=== PATIENT | male | born 1975 | race Caucasian/White ===

== ENCOUNTER 2017-09-30 02:11 | Emergency (ER) | payer BC, OTHER ==
[2017-09-30] MEDS ORDERED: Orphenadrine 100 MG Tab.ER PO STA (03:01)
[2017-09-30] MEDS ORDERED: Acetaminophen/HYDROcodone 325-5 MG Tab PO ONE (03:01)
--- NOTE | 2017-09-30 03:10 | EDM.PDOC ---
ED HPI GENERAL MEDICAL PROBLEM - General Chief Complaint: Back Pain or Injury Stated Complaint: BACK PAIN Time Seen by Provider: 09/30/17 02:30 Source of Information: Reports: Patient, Family (), RN Notes Reviewed History Limitations: Reports: No Limitations - History of Present Illness INITIAL COMMENTS - FREE TEXT/NARRATIVE: The patient states that he lifted a heavy box around 10:00 yesterday morning, 09/29/2017, while at home. When he did so, he felt a tug in his lower back, so he stopped lifting the box, but very soon afterwards the tightness in his lower back significantly increased, so that within a few minutes, he was unable to flex at the hips. He is most comfortable if he lies on his back with his knees bent upwards, and sometimes if he rolls his entire body to the left or right, as a unit. He states that the pain is felt in his lower back and upper buttocks, and does not radiate down either lower extremity, except occasionally, if he moves wrong, where he may have pain radiating down the back of both thighs as far as his knees. The patient states that if he tries to flex, the pain may be so severe that he might fall to the floor, but he does not have lower extremity weakness, per se. No bowel or bladder incontinence. He states that he has had prior low back pain, but not as severe. No prior medical evaluation of his lower back. The patient states that he has been taking ibuprofen for his discomfort. The patient does not have a PCP. 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 Lower Back Pain Score (Numeric/FACES): 8 - Related Data Allergies Allergy/AdvReac Type Severity Reaction Status Date / Time No Known Allergies Allergy Verified 09/30/17 02:22 Home Meds: Home Meds Hydrocodone/Acetaminophen [[place] 5-325 Tablet] 1 - 2 tab PO Q6H PRN #14 tablet 09/30/17 [Rx] Orphenadrine [Norflex] 1 tab PO Q12H #20 tab.er 09/30/17 [Rx] Past Medical History - Past Surgical History HEENT Surgical History: Reports: Oral Surgery (Pool teeth extraction) Social & Family History - Family History Family Medical History: Noncontributory - Tobacco Use Smoking Status *Q: Never Smoker - Caffeine Use Caffeine Use: Reports: Soda - Alcohol Use Alcohol Use History: No - Recreational Drug Use Recreational Drug Use: No - Living Situation & Occupation Living situation: Reports: , with Spouse, with Family (3 kids) Occupation: Employed (Construction) ED ROS GENERAL - Review of Systems Review Of Systems: See Below Constitutional: Reports: No Symptoms HEENT: Reports: No Symptoms Respiratory: Reports: No Symptoms Cardiovascular: Reports: No Symptoms Endocrine: Reports: No Symptoms GI/Abdominal: Reports: No Symptoms : Reports: No Symptoms Musculoskeletal: Reports: No Symptoms Skin: Reports: No Symptoms Neurological: Reports: No Symptoms Psychiatric: Reports: No Symptoms Hematologic/Lymphatic: Reports: No Symptoms Immunologic: Reports: No Symptoms ED EXAM,LOWER BACK PAIN/INJURY - Physical Exam Exam: See Below Exam Limited By: No Limitations General Appearance: Alert, WD/WN, Moderate Distress (When asked to flex and twist, etc.) Back Exam: Normal Inspection, Decreased Range of Motion, Other (The patient is unable to flex or extend the spine due to pain. He is not able to tilt the spine to the right, however, is able to tilt to the left to approximately 30. He is able to twist the spine to the left approximate 5, to the right approximate 30. Unilateral knee bend on the left is quite limited due to pain, but essentially normal on the right. Straight leg raise induces low back pain without radiculopathy at approximate 45 bilaterally. Symptoms are not worsened with forced dorsiflexion of either foot.). No: Muscle Spasm, Paraspinal Tenderness, Vertebral Tenderness Course - Vital Signs Last Recorded V/S: Last Vital Signs Temp 36.4 C 09/30/17 02:18 Pulse 70 09/30/17 02:18 Resp 18 09/30/17 02:18 BP 118/71 09/30/17 02:18 Pulse Ox 100 09/30/17 02:18 - Orders/Labs/Meds Orders: Active Orders 24 hr Category Date Time Status Acetaminophen/HYDROcodone [[place] 325-5 MG] Med 09/30/17 03:01 Once 2 tab PO ONETIME ONE Orphenadrine [Norflex] Med 09/30/17 03:01 Stat 100 mg PO ONETIME STA - Re-Assessments/Exams Free Text/Narrative Re-Assessment/Exam: 09/30/17 03:02 As the various physical examination maneuvers induced only low back pain without radiculopathy, I suspect that he is suffering from acute muscle spasm, not a herniated disc. I have started the patient on both Norflex and [place], and will prescribe the same. I am recommending that he begin swimming later today, and I will refer him to Dr. Tobias, should his symptoms not improve. Departure - Departure Time of Disposition: 03:03 Disposition: Home, Self-Care 01 Condition: Fair Clinical Impression: Low back strain - Discharge Information Prescriptions: Hydrocodone/Acetaminophen [[place] 5-325 Tablet] 1 - 2 tab PO Q6H PRN #14 tablet PRN Reason: Pain (Severe 7-10) Referrals: Cornelius Tobias [Physician] - Additional Instructions: You were seen in the emergency room for low back pain that developed after lifting a heavy box. Based on your history and physical examination, your pain is MOST LIKELY due to muscle strain, less likely due to a herniated intervertebral disc. You have been started on the muscle relaxant Norflex. Take one tablet every 12 hours, as prescribed. We recommend that you continue to take [id number] ibuprofen, 2-3 tablets ( 400-600 mg) every 8 hours, with food, as needed for pain. You may take 1-2 tablets of the prescription pain medicine [place] up to every 6 hours, as needed for pain not relieved by ibuprofen. If you take [place], do not drive or operate heavy machinery for 10 hours afterwards. [place] will likely cause constipation, so consider taking a stool softener. It is very important that you stay active, no matter what the cause of your low back pain. Swimming is best, but walking is still good. You may get some relief by lying on a firm surface, pulling your knees towards your chest, and rocking. You may get some relief when walking by cinching a belt low around your hips. If your symptoms are not improving within a few days, please follow-up with Dr. Tobias in the clinic. If your symptoms worsen, such as the development of weakness of either leg, or the inability to hold your bowel or bladder, you need to return to the ER for further evaluation. - My Orders Last 24 Hours: My Active Orders 09/30/17 03:01 Acetaminophen/HYDROcodone [[place] 325-5 MG] 2 tab PO ONETIME ONE Orphenadrine [Norflex] 100 mg PO ONETIME STA - Assessment/Plan Last 24 Hours: My Active Orders 09/30/17 03:01 Acetaminophen/HYDROcodone [[place] 325-5 MG] 2 tab PO ONETIME ONE Orphenadrine [Norflex] 100 mg PO ONETIME STA
== END 2017-09-30 03:22 | disposition home or self-care (01) ==
LOC: JD.ED 02:11
DX: S39.012A Strain of muscle, fascia and tendon of lower back, initial encounter (principal); X50.0XXA Overexertion from strenuous movement or load, initial encounter
CPT/HCPCS: 99283; A9270